=== PATIENT | male | born 1965 | race Caucasian/White ===

== ENCOUNTER 2017-04-08 02:18 | Emergency (ER) | payer MEDICARE, OTHER | END 2017-04-08 04:00 | disposition left against medical advice (07) | LOC: ER1 02:18 | DX: Z53.21 Procedure and treatment not carried out due to patient leaving prior to being seen by health care provider (principal) ==

== ENCOUNTER 2017-04-08 11:22 | Emergency (ER) | payer MEDICARE, OTHER | END 2017-04-08 15:10 | disposition home or self-care (01) | LOC: ER1 11:22 | DX: S02.2XXA Fracture of nasal bones, initial encounter for closed fracture (principal); S02.40DA Maxillary fracture, left side, initial encounter for closed fracture; S16.1XXA Strain of muscle, fascia and tendon at neck level, initial encounter; S00.31XA Abrasion of nose, initial encounter; W18.39XA Other fall on same level, initial encounter; Y92.009 Unspecified place in unspecified non-institutional (private) residence as the place of occurrence of the external cause; I10 Essential (primary) hypertension; E78.5 Hyperlipidemia, unspecified; Z88.0 Allergy status to penicillin; F17.210 Nicotine dependence, cigarettes, uncomplicated | CPT/HCPCS: 70450; 70486; 72125; 99283 ==

== ENCOUNTER 2020-11-22 12:30 | Emergency (ER) | payer MEDICARE, OTHER ==
[~2020-11-22 12:30] MED LIST: ASPIRIN CHEWABL81 MG PO; BACTROBAN NASAL1 G1 TOP; BACTROBAN OINT22 GM EXT; BENTYL 20MG TAB20 MG PO; CARDIZEM CD240 MG PO; CLEOCIN HCL300 MG PO; CYCLOBENZAPRINE10 MG PO; IBUPROFEN600 MG PO; IBUPROFEN800 MG PO; LODINE CAP 300300 MG PO; NAPROSYN500 MG PO; NITROSTAT0.4 MG SL; NORCO 5-325 TA1 EACH PO; NORFLEX 100 MG100 MG PO; PERCOCET 10-321 EACH PO; PERCOCET 5/325 T1 EA PO; TORADOL 10 MG T10 MG PO; ULTRAM50 MG PO; VIBRAMYCIN100 MG PO; Voltaren Gel 1 % TOP; ZOFRAN ODT 4 MG4 MG SL
[2020-11-22] MEDS ORDERED: CYCLOBENZAPRINE10 MG PO (15:50)
== END 2020-11-22 16:10 | disposition home or self-care (01) ==
LOC: ER1 12:30
DX: M51.36 Other intervertebral disc degeneration, lumbar region (principal); I10 Essential (primary) hypertension; E78.5 Hyperlipidemia, unspecified; F17.200 Nicotine dependence, unspecified, uncomplicated; Z90.49 Acquired absence of other specified parts of digestive tract; Z79.899 Other long term (current) drug therapy; W01.0XXA Fall on same level from slipping, tripping and stumbling without subsequent striking against object, initial encounter
CPT/HCPCS: 72131; 81001; 99284

== ENCOUNTER 2021-01-02 13:04 | Emergency (ER) | payer MEDICARE, OTHER ==
[2021-01-02] MEDS ORDERED: NAPROSYN500 MG PO (13:29)
[2021-01-02] MEDS ORDERED: CLINDAMYCIN HC300 MG PO (13:29)
== END 2021-01-02 13:42 | disposition home or self-care (01) ==
LOC: ER1 13:04
DX: K02.9 Dental caries, unspecified (principal); K05.00 Acute gingivitis, plaque induced; I10 Essential (primary) hypertension; Z88.0 Allergy status to penicillin
CPT/HCPCS: 99282

== ENCOUNTER 2021-01-04 10:01 | Emergency (ER) | payer MEDICARE, OTHER ==
[~2021-01-04 10:01] MED LIST changes: +CLINDAMYCIN HC300 MG PO
== END 2021-01-04 10:21 | disposition left against medical advice (07) ==
LOC: ER1 10:01
DX: Z53.21 Procedure and treatment not carried out due to patient leaving prior to being seen by health care provider (principal)

== ENCOUNTER 2021-04-21 13:28 | Emergency (ER) | payer MEDICARE, OTHER ==
[2021-04-21] MEDS ORDERED: CYCLOBENZAPRINE10 MG PO (16:37)
[2021-04-21] MEDS ORDERED: IBUPROFEN800 MG PO (16:37)
== END 2021-04-21 16:51 | disposition home or self-care (01) ==
LOC: ER1 13:28
DX: S39.012A Strain of muscle, fascia and tendon of lower back, initial encounter (principal); I10 Essential (primary) hypertension; E78.5 Hyperlipidemia, unspecified; F17.210 Nicotine dependence, cigarettes, uncomplicated; Z90.49 Acquired absence of other specified parts of digestive tract; Z88.0 Allergy status to penicillin; X50.9XXA Other and unspecified overexertion or strenuous movements or postures, initial encounter
CPT/HCPCS: 72131; 96372; 99283; J1885; J2270

== ENCOUNTER 2021-04-29 13:04 | Emergency (ER) | payer MEDICARE, OTHER ==
[2021-04-29] MEDS ORDERED: IBUPROFEN800 MG PO (15:22)
[2021-04-29] MEDS ORDERED: CYCLOBENZAPRINE10 MG PO (15:22)
== END 2021-04-29 15:45 | disposition home or self-care (01) ==
LOC: ER1 13:04
DX: S93.401A Sprain of unspecified ligament of right ankle, initial encounter (principal); I10 Essential (primary) hypertension; X50.1XXA Overexertion from prolonged static or awkward postures, initial encounter; Y92.009 Unspecified place in unspecified non-institutional (private) residence as the place of occurrence of the external cause
CPT/HCPCS: 73590; 73610; 73630; 99283

== ENCOUNTER 2021-05-04 11:02 | Emergency (ER) | payer OTHER | END 2021-05-04 12:01 | disposition left against medical advice (07) | LOC: ER1 11:02 | DX: Z53.21 Procedure and treatment not carried out due to patient leaving prior to being seen by health care provider (principal) ==

== ENCOUNTER → 2021-05-05 | Outpatient (CLI) | payer MEDICARE, OTHER ==
[~2021-05-05] MED LIST changes: +NAPROXEN500 MG PO; +ZOFRAN ODT 4 MG4 MG PO
== END ==
LOC: KOH-I 09:16
DX: M79.671 Pain in right foot (principal)
CPT/HCPCS: 73630

== ENCOUNTER 2021-05-11 08:54 | Emergency (ER) | payer MEDICARE, OTHER ==
[~2021-05-11 08:54] MED LIST changes: -NAPROXEN500 MG PO; -ZOFRAN ODT 4 MG4 MG PO
== END 2021-05-11 10:00 | disposition home or self-care (01) ==
LOC: ER1 08:54
DX: S93.601A Unspecified sprain of right foot, initial encounter (principal); S93.401A Sprain of unspecified ligament of right ankle, initial encounter; Z88.0 Allergy status to penicillin; I10 Essential (primary) hypertension; F17.200 Nicotine dependence, unspecified, uncomplicated; X50.1XXA Overexertion from prolonged static or awkward postures, initial encounter
CPT/HCPCS: 73610; 96372; 99283; J1885

== ENCOUNTER 2021-05-19 01:42 | Emergency (ER) | payer MEDICARE, OTHER ==
[2021-05-19 03:08] LABS: HEMOGLOBIN 14.5 gm/dl (14.0-17.5); RED BLOOD COUNT 4.97 M/UL (4.20-5.50); WHITE BLOOD COUNT 7.6 K/UL (4.5-11.0)
[2021-05-19 03:20] LABS: BUN/CREATININE RATIO 13 (0-10)
[2021-05-19] MEDS ORDERED: BENTYL 20MG TAB20 MG PO (05:21)
[2021-05-19] MEDS ORDERED: ZOFRAN ODT 4 MG4 MG PO (05:21)
== END 2021-05-19 06:53 | disposition home or self-care (01) ==
LOC: ER1 01:42
PROVIDERS: Physician Assistant
DX: R10.84 Generalized abdominal pain (principal); M54.5 Low back pain; G89.29 Other chronic pain; I10 Essential (primary) hypertension; M19.90 Unspecified osteoarthritis, unspecified site; F17.210 Nicotine dependence, cigarettes, uncomplicated; Z90.49 Acquired absence of other specified parts of digestive tract; Z88.0 Allergy status to penicillin
CPT/HCPCS: 80053; 81001; 83690; 85025; 87086; 96374; 96375; 99284; J2270; J2405; J7030; Q9967

== ENCOUNTER 2021-05-23 18:18 | Emergency (ER) | payer MEDICARE, OTHER ==
[~2021-05-23 18:18] MED LIST changes: +ZOFRAN ODT 4 MG4 MG PO
[2021-05-24] MEDS ORDERED: IBUPROFEN800 MG PO (08:04)
[2021-05-24] MEDS ORDERED: CYCLOBENZAPRINE10 MG PO (08:04)
== END 2021-05-23 21:30 | disposition home or self-care (01) ==
LOC: ER1 18:18
DX: S93.401A Sprain of unspecified ligament of right ankle, initial encounter (principal); I10 Essential (primary) hypertension; Z88.0 Allergy status to penicillin; F17.210 Nicotine dependence, cigarettes, uncomplicated; X50.1XXA Overexertion from prolonged static or awkward postures, initial encounter; Y92.89 Other specified places as the place of occurrence of the external cause; Y99.0 Civilian activity done for income or pay
CPT/HCPCS: 73610; 99283

== ENCOUNTER 2021-05-24 07:00 | Emergency (ER) | payer MEDICARE, OTHER ==
[2021-05-24] MEDS ORDERED: CYCLOBENZAPRINE10 MG PO (08:04)
[2021-05-24] MEDS ORDERED: IBUPROFEN800 MG PO (08:04)
[2021-05-25] MEDS ORDERED: NAPROXEN500 MG PO (13:33)
== END 2021-05-24 08:20 | disposition home or self-care (01) ==
LOC: ER1 07:00
DX: S93.401A Sprain of unspecified ligament of right ankle, initial encounter (principal); Z88.0 Allergy status to penicillin; E78.5 Hyperlipidemia, unspecified; X50.1XXA Overexertion from prolonged static or awkward postures, initial encounter; Y92.009 Unspecified place in unspecified non-institutional (private) residence as the place of occurrence of the external cause
CPT/HCPCS: 73590; 73610; 96372; 99283; J1885

== ENCOUNTER 2021-05-25 11:31 | Emergency (ER) | payer MEDICARE, OTHER ==
[2021-05-25] MEDS ORDERED: NAPROXEN500 MG PO (13:33)
== END 2021-05-25 13:50 | disposition home or self-care (01) ==
LOC: ER1 11:31
DX: S93.401A Sprain of unspecified ligament of right ankle, initial encounter (principal); X50.0XXA Overexertion from strenuous movement or load, initial encounter; Y92.69 Other specified industrial and construction area as the place of occurrence of the external cause; Y99.0 Civilian activity done for income or pay
CPT/HCPCS: 29515; 99283

== ENCOUNTER → 2021-06-04 | Outpatient (CLI) | payer MEDICARE, OTHER ==
[~2021-06-04] MED LIST changes: +NAPROXEN500 MG PO
== END ==
LOC: EMI 05-29 16:00
DX: M25.571 Pain in right ankle and joints of right foot (principal); S99.921A Unspecified injury of right foot, initial encounter
CPT/HCPCS: 73721